=== PATIENT | male | born 1970 | race Caucasian/White ===

== ENCOUNTER 2021-07-24 14:00 | Outpatient (RCR) | payer BC, SELFPAY | END 2022-01-02 13:33 | disposition home or self-care (01) | LOC: HO.PTWFD 14:00 | PROVIDERS: PCP Pediatrics; Visit Provider Psychiatry & Neurology Neurology | DX: R42 Dizziness and giddiness (principal); M54.2 Cervicalgia | CPT/HCPCS: 97012; 97110; 97140; 97162 ==

== ENCOUNTER → 2021-07-31 13:09 | Outpatient (BNVA) | payer BC, SELFPAY | PROVIDERS: PCP Pediatrics; Visit Provider Psychiatry & Neurology Neurology ==

== ENCOUNTER → 2021-10-23 14:19 | Outpatient (BNVA) | payer BC, SELFPAY | PROVIDERS: PCP Pediatrics; Visit Provider Psychiatry & Neurology Neurology | DX: M47.22 Other spondylosis with radiculopathy, cervical region (principal) ==

== ENCOUNTER → 2022-09-30 14:01 | Outpatient (BNVA) | payer BC, SELFPAY | PROVIDERS: PCP Family Medicine; Visit Provider Psychiatry & Neurology Neurology | DX: M47.22 Other spondylosis with radiculopathy, cervical region (principal) ==

== ENCOUNTER → 2022-11-23 15:11 | Outpatient (BNVA) | payer BC, SELFPAY | PROVIDERS: PCP Family Medicine; Visit Provider Psychiatry & Neurology Neurology | DX: M47.22 Other spondylosis with radiculopathy, cervical region (principal); G24.3 Spasmodic torticollis ==

== ENCOUNTER 2023-03-31 14:56 | Outpatient (AMB) | payer BC, SELFPAY ==
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
[2023-03-31 15:31] VITALS: BP 122/76; PULSE 64; RESP 14; O2SAT 97; BMI 27.1
== END 2023-03-31 15:53 | disposition home or self-care (01) ==
PROVIDERS: PCP Family Medicine; Visit Provider Psychiatry & Neurology Neurology
DX: M47.22 Other spondylosis with radiculopathy, cervical region (principal); G24.3 Spasmodic torticollis
CPT/HCPCS: 99214

== ENCOUNTER → 2023-03-31 14:56 | Outpatient (BNVA) | payer BC, SELFPAY | PROVIDERS: PCP Family Medicine; Visit Provider Psychiatry & Neurology Neurology | DX: M47.22 Other spondylosis with radiculopathy, cervical region (principal); G24.3 Spasmodic torticollis ==

== ENCOUNTER 2023-09-28 15:00 | Outpatient (AMB) | payer BC, SELFPAY ==
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
[2023-09-28 15:24] VITALS: BP 118/78; PULSE 62; RESP 16; BMI 26.8
== END 2023-09-28 15:39 | disposition home or self-care (01) ==
PROVIDERS: PCP Family Medicine; Visit Provider Psychiatry & Neurology Neurology
DX: M47.22 Other spondylosis with radiculopathy, cervical region (principal)
CPT/HCPCS: 99213

== ENCOUNTER → 2023-09-28 15:00 | Outpatient (BNVA) | payer BC, SELFPAY | PROVIDERS: PCP Family Medicine; Visit Provider Psychiatry & Neurology Neurology | DX: M47.22 Other spondylosis with radiculopathy, cervical region (principal); G24.3 Spasmodic torticollis ==

== ENCOUNTER 2024-10-02 15:26 | Outpatient (AMB) | payer BC, SELFPAY ==
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
[2024-10-02 15:31] VITALS: BP 120/82; BMI 25.4
--- OUTSIDE RECORDS SUMMARY | 2024-10-02 17:54 | XMS_ITS ---
Author Name [facility] Organization Unknown Care Team Organization Name Specialty Phone Email Start Date End Da naheed ColbydaLawton. 04/28/2022 02/07/20 24
--- OUTSIDE RECORDS SUMMARY | 2024-10-02 17:54 | XMS_ITS | Clinical Summary ---
Author Organization [employer] Address [address] [place] [address] [address] [place] [address] Care Team Providers Care Burlap Man Name Role Phone Rica Cody MD Primary Care Provider [phone] Immunizations Name Administration Dates Next Due INFLUENZA INJECTABLE QUADRIV ALANT CCIIV4 MDCK Multi-dose vial 03/16/2023 Influenza, IIV3, injectable 03/31/2022,0 03/10/2021,03/26/2020,2018,03/10/2018,04/02/2017,03/26/2016,1 ,05/01/2014 Influenza, Recombinant, inje ctable, preservative free 04/05/2014 TD (adult), 2 Lf tetanus tox oid, preservative free, adsorbed 05/23/2020,02/02/1997 Td, Adsorbed, Preservative F ree, Adult Use, Lf Unspecified 05/23/2020,02/02/1997 Tdap 12/24/2009 Social History Tobacco Use Types Packs/Day Years Used Date Smoking Tobacco: Never Assessed Sex and Gender Information Value Date Recorded Sex Assigned at Male 03/15/2023 9:23 AM EDT Legal Sex Male 8:37 PM EDT Gender Identity Male 03/15/2023 9:23 AM EDT Sexual Orientation Don't know 03/15/2023 9: 23 AM EDT Last Filed Vital Signs Vital Sign Reading Time Taken Comments Blood Pressure 115/60 10/29/2021 1:15 PM EDT Pulse 74 10/29/2021 1:15 PM EDT Temperature - - Respiratory Rate - - Oxygen Saturation 99% 10/29/2021 1:15 PM EDT Inhaled Oxygen Concentration - - Weight 80.7 kg (178 lb) 10/29/2021 1:15 PM EDT Height 180.3 cm (5' 11 ) 10/29/2021 1:15 PM EDT Body Mass Index 24.83 10/29/2021 1:15 PM EDT Plan of Treatment Health Maintenance Due Date Last Done Comments CT Colonography 1969 Colonoscopy 1969 Colorectal Cancer Screening 1969 Depression Screening 1969 FIT DNA/Cologuard 1969 FIT 1969 FOBT 1969 HIV Screening 1969 Lipid Panel 1969 SDOH Screening 1969 Sigmoidoscopy 1969 Alcohol/Substance Use Screening 1981 Tobacco Screening 1981 Hepatitis C Screening 11/24/1987 Hepatitis B Vaccines (1 of 3 - 19+ 3-dose series) 1988 Pneumococcal Vaccine: 50+ Years (1 of 1 - PCV) 11/24/2019 Zoster Vaccines (1 of 2) 11/24/2019 COVID-19 Vaccine ( - season) 2024 05/25/2022, 04/02/2021, 09/20/2020, Additional history exists Influenza Vaccine (#1) 2024 3, 03/31/2022, 03/10/2021, Additional history exists DTaP/Tdap/Td Vaccines (4 - Td or Tdap) 05/23/2030 05/23/2020, 05/23/2020, 12/24/2009, Additional history exists RSV Patients and Patients Aged 60 years or older (1 - 1-dose 75+ series) 2044 HIB Vaccines Aged Out No longer eligi ble based on patient's age to complete this topic HPV Vaccines Aged Out No longer eligi ble based on patient's age to complete this topic Hepatitis A Vaccines Aged Out No long er eligible based on patient's age to complete this topic IPV Vaccines Aged Out No longer eligi ble based on patient's age to complete this topic Meningococcal Vaccine Aged Out No perry he eligible based on patient's age to complete this topic RSV under 20 months Aged Out No longe r eligible based on patient's age to complete this topic Rotavirus Vaccines Aged Out No longer eligible based on patient's age to complete this topic Insurance [facility] HMO Care Teams Burlap Man Relationship Specialty Start Date End Date Rica Cody MD PCP - General Internal Medicine 03/16/23
--- OUTSIDE RECORDS SUMMARY | 2024-10-02 17:54 | XMS_ITS | Clinical Summary ---
Author Organization [facility] ity Address [address] [place] [address] Care Team Providers Care Inside Sales Account Manager Name Role Phone Rica Cody MD Primary Care Provider Allergies No known active allergies Medications coenzyme Q-10 100 mg capsule Take by mouth. Active multivit-min/iron /folic acid/K (ADULTS MULTIVITAMIN ORAL) Take by mouth daily. Active CYANOCOBALAMIN, VITAMIN B-12, ORAL Take by mouth daily. Active omeprazole (PriLOSEC) [address] capsule Take 1 capsule (20 mg total) by mouth 1 (one) time each day. For 360 days 2 Active Active Problems Problem Noted Date Diagnosed Date Multiple lung nodules on CT 11/12/2022 Overview (07/10/2024): 08/2019 - multiple small lung nodules: : 4mm right upper lobe and 4mm left upper lobe 11/10 - stable Hyperlipidemia 09/15/2022 Chest pain 09/19/2021 Palpitations 09/19/2021 Neck pain 08/29/2021 Overview (07/10/2024): Last Assessment & Plan: Patient describes 2 years of dizziness, neck pain, pain radiating up the back of the head, numbness in fingertips of all digits bilaterally. He feels when he is driving he veers slightly off course at times. He denies severe headaches, nausea or vomiting, Lyme's disease, has had multiple tick bites over the years. Occasionally he smokes cigars, + EtOH use. He tried physical therapy twice, once greater than a year ago, once recently including traction, no TENS unit, temporary improvement only. They tried maneuvers for vertigo without improvement in his dizziness. He rates his neck pain 5/10. He had EMGs that were negative. He had brain MRA/MRV that was negative. He spent many years working on his [place] in [place] working with chemicals, his current job also involves long treatments with chemicals. He also states he was recently started on vitamin B-12, lab work was also showing low iron. His MRI cervical spine 09/16/2020 at [facility] showed mild multilevel degenerative changes, no significant neuroforaminal narrowing, no central stenosis. He does have straightening of the cervical lordosis. I reviewed patient's MRI with him and his in detail on the computer. I also reviewed his MRI with Dr. Zuleta on today's visit. She does not recommend surgical intervention at this time, patient states his symptoms have not worsened over the last year since the MRI was done, we will not order updated cervical MRI unless he has increasing symptoms. However I did asked the patient to call us if he has worsening symptoms, including weakness, tripping falling, worsening neck pain, radiating arm pain and we would order an updated cervical MRI. We do not see any findings on the MRI to explain his symptoms, Dr. Zuleta did state it's possible it could be related to exposure to chemicals, lead poisoning, etc.given his history. Patient states he already has been planning to ask his doctor to order chrolinesterade levels given his exposure to chemicals. He plans to follow-up with his neurologist. We talked about possibly trying TENS unit with physical therapy that he could see if it would help if he has a home device. At this point he would like to follow up with his doctors and call if he needs any prescriptions. All questions answered on today's visit. Proteinuria 09/19/2014 Hematuria 12/24/2009 Immunizations Name Administration Dates Next Due Influenza trivalent, 0.5mL, preservative free (Fluarix; FluLaval; Fluzone) ages 6mo and older (Afluria) 3 years and older 03/31/2022,03/21/2020 Influenza trivalent, with pr eservative (Fluzone; Afluria) 6mo and older 03/26/2020,03/14/2019,05/01/2014 TD, Adsorbed, Preservative Free 05/23/2020,02/02 Tdap Tetanus diptheria acell ular pertussis (Boostrix; Adacel) 7yo and older 12/24/2009 Surgical History Surgery Date Site/Laterality Comments HERNIA REPAIR 05/2003 PROCEDURE: REPAIR UMBILICAL HERNIA WISDOM TOOTH EXTRACTION PROCEDURE: HISTORICAL WISDOM TEETH EXTRACTION VASECTOMY PROCEDURE: NE VASECTOMY UNI/BI SPX W/POSTOP SEMEN EXAMS Medical History Medical History Date Comments Microscopic hematuria 1998 DX:Microsc opic hematuria; COMMENT: Dr. Robertson; cystoscopy, IVP normal Habitual alcohol use DX:Habitual alcohol use; COMMENT: 2-3 per night Gynecomastia, male DX:Gynecomast ia, male; COMMENT: right; neg work-up; Dr. Freire endocrine Family History Medical History Relation Name Comments Hypertension Brother 1 aditi Other: pancreatic cancer Maternal Grandfather Relation Name Status Comments Brother 1 aditi healthy; identi brandon twin; prostate issues; no cancer Brother 2 latoya Alive appendix remove d, ? found cancer Brother 3 Alive healthy Father Alive htn, thyroid Maternal Grandfather prostat e cancer Maternal Grandmother Alive healthy Mother Alive healthy Paternal Grandfather DM, thy roid? Paternal Grandmother Alive dementi a Sister Son 1 Alive healthy Son 2 Alive healthy Social History Tobacco Use Types Packs/Day Years Used Date Smoking Tobacco: Never Smokeless Tobacco: Never Alcohol Use Standard Drinks/Week Comments Not Currently 7 (1 standard drink = 0.6 oz pur e alcohol) Sex and Gender Information Value Date Recorded Sex Assigned at Not on file Legal Sex Male 7:14 PM EST Gender Identity Not on file Sexual Orientation Not on file Obstetrics History Last Filed Vital Signs Vital Sign Reading Time Taken Comments Blood Pressure 121/64 03/15/2024 3:53 PM EDT Pulse 61 03/15/2024 3:53 PM EDT Temperature - - Respiratory Rate - - Oxygen Saturation - - Inhaled Oxygen Concentration - - Weight 83.9 kg (185 lb) 03/15/2024 3:53 PM EDT Height 180.3 cm (5' 11 ) 10/05/2022 3:47 PM EDT Body Mass Index 25.8 10/05/2022 3:47 PM EDT Plan of Treatment Upcoming Encounters Date Type Department Care Team (Late st Contact Info) Description 03/21/2025 4:00 PM EDT Office Visit Nephrology - [place] [address] [place] [address] Gal Red MD [address] [facility] [address] [place] [address] Health Maintenance Due Date Last Done Comments Hepatitis B Vaccines (1 of 3 - 19+ 3-dose series) 1988 Pneumococcal Vaccine: 50+ Years (1 of 1 - PCV) 11/24/2019 Zoster Vaccines (1 of 2) 11/24/2019 Depression Screening 05/30/2022 HIV Screening 05/30/2022 Social Influencers of Health Screening 05/30/2022 COVID-19 Vaccine (3 - season) 2024 09/20/2020, 08/30/2020 Influenza Vaccine (Season Ended) 2025 03/31/2022, 03/26/2020, 03/21/2020, Additional history exists Cholesterol Screening (Lipid Panel) 09/17/2027 09/16/2022 DTaP,Tdap,and Td Vaccines (3 - Td or Tdap) 05/23/2030 05/23/2020, 12/24/2009, 02/02/1997 Colorectal Cancer Screening: Colonoscopy 11/22/2030 11/22/2020 Hepatitis C Screening Completed 03/13/2015 HIB Vaccines Aged Out No longer eligi [...] on patient's age to complete this topic MMR Vaccines Aged Out No longer eligi ble based on patient's age to complete this topic Meningococcal ACWY Vaccine Aged Out N o longer eligible based on patient's age to complete this topic Meningococcal B Vaccine Aged Out No l onger eligible based on patient's age to complete this topic Pneumococcal Vaccine: Pediatrics (0 to 5 Years) and At-Risk Patients (6 to 64 Years) Aged Out No longer eligible based on patient's age to complete this topic RSV Immunization Patients Under 20 months Aged Out No longer eligible based on patient's age to complete this topic Varicella Vaccines Aged Out No longer eligible based on patient's age to complete this topic Procedures Procedure Name Priority Date/Time Associated Diagnosis Comments LIPID PANEL Routine 09/16/2022 COLONOSCOPY Routine 11/22/2020 HEPATITIS C SCREENING Routine 03/13/2015 from Last 3 Months or Most Recently Relevant to Health Maintenance Results * (ABNORMAL) Lipid panel (09/16/2022) Pathologist [facility] [place] LDL/HDL Ratio 3 0 - 4 Triglycerides 96 0 - 150 mg/dL Cholesterol 224(A) 0 - 200 mg/dL HDL 67 >=40 mg/dL LDL Cholesterol 138(A) 0 - 100 mg/dL Blood Venous blood specimen / Unknown Historical Provider LAB BLOOD ORDERABLES Radha l Result * Colonoscopy (11/22/2020) Pathologist [facility] Colonoscopy Abstracted, No Interpretation Anatomical Region Laterality Modality Other Historical Provider HEALTH MAINTENANCE Final Result * Hepatitis C Screening (03/13/2015) [facility] Hepatitis C Screening abstracted Historical Provider HEALTH MAINTENANCE Final Result from Last 3 Months or Most Recently Relevant to Health Maintenance Care Teams Inside Sales Account Manager Relationship Specialty Start Date End Date Rica Cody MD [address] [place] [id number] PCP - General Internal Medicine 02/06/22
== END 2024-10-02 15:49 | disposition home or self-care (01) ==
LOC: HO.HSMS 15:26
PROVIDERS: PCP Family Medicine; Visit Provider Psychiatry & Neurology Neurology
DX: M47.22 Other spondylosis with radiculopathy, cervical region (principal)
CPT/HCPCS: 99214

== ENCOUNTER → 2024-10-02 15:26 | Outpatient (BNVA) | payer BC, SELFPAY | PROVIDERS: PCP Family Medicine; Visit Provider Psychiatry & Neurology Neurology ==